=== PATIENT | male | born 1995 | race African-American/Black ===

== ENCOUNTER 2018-09-21 16:33 | Emergency (ER) | payer MEDICAID ==
[~2018-09-21] VITALS: Ht 185.4 cm; Wt 73.0 kg
[2018-09-21 16:41] VITALS: BP 139/74
== END 2018-09-21 19:30 | disposition left against medical advice (07) ==
LOC: ER 18:00
DX: Z53.21 Procedure and treatment not carried out due to patient leaving prior to being seen by health care provider (principal)